=== PATIENT | male | born 1980 | race Hispanic/Latino ===

== ENCOUNTER 2021-12-23 18:41 | Emergency (ER) | payer BC ==
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
[2021-12-23] MEDS ORDERED: HYDROcodone/ACETAMINOPHEN 5-325 MG TAB PO STA (19:47)
[2021-12-23] MEDS ORDERED: NEOMY 3.5 MG/BACIT 400 UNITS/POLY B 5000 UNITS/GM OINT PACKET TP STA (19:47)
[2021-12-23] MEDS ORDERED: TETANUS,DIPH,PERTUSS(ACELL) VACCINE 0.5 ML SYRINGE IM ONE (20:43)
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
[2021-12-23] MEDS ORDERED: KETOROLAC 60 MG/2 ML INJ IM STA (21:15)
[2021-12-23 22:13] VITALS: BP 124/76
== END 2021-12-23 22:13 | disposition home or self-care (01) ==
LOC: ED 18:41
DX: S60.212A Contusion of left wrist, initial encounter (principal); S70.02XA Contusion of left hip, initial encounter; T14.8XXA Other injury of unspecified body region, initial encounter; V89.1XXA Person injured in unspecified nonmotor-vehicle accident, nontraffic, initial encounter; Y93.89 Activity, other specified; Y92.89 Other specified places as the place of occurrence of the external cause; Y99.8 Other external cause status
CPT/HCPCS: 73090; 73502; 90471; 90715; 96372; 99283; J1885